=== PATIENT | female | born 1940 ===

== ENCOUNTER 2023-07-25 14:46 | Outpatient (REF) | payer MEDICARE, SELFPAY ==
--- NOTE | ~2023-07-25 | MM_ITS ---
EXAMINATION: MM SCREENING DIGITAL BREAST TOMOSYNTHESIS, BILATERAL CLINICAL INFORMATION: Screening. Asymptomatic. COMPARISON: Mammography: This study is compared with prior exams dating back to 2022. TECHNIQUE: Digital breast tomosynthesis is performed in both the craniocaudal and mediolateral oblique views along with computer-aided detection (CAD). Synthesized 2D images are generated from the tomosynthesis. FINDINGS: There are scattered areas of fibroglandular density (ACR BI-RADS breast composition Category b). There are no significant masses, abnormal calcifications, or other abnormalities. There are scattered, unchanged benign calcifications throughout the left breast along with several benign oil cysts. MM/MM tomosynthesis screening BI IMPRESSION: No mammographic evidence of malignancy. ASSESSMENT: BI-RADS BI-RADS 2 - Benign Findings RECOMMENDATION: Routine annual mammography screening. 1 year F/U This examination should not preclude the clinical evaluation of a suspicious palpable abnormality. This patient's information was entered into a reminder system with a target due date for their next mammogram.
== END 2023-07-25 14:47 | disposition home or self-care (01) ==
LOC: HO.MAMMO 14:46
PROVIDERS: PCP Internal Medicine; Visit Provider Internal Medicine
DX: Z12.31 Encounter for screening mammogram for malignant neoplasm of breast (principal)
CPT/HCPCS: 77063; 77067

== ENCOUNTER → 2023-07-25 15:00 | Outpatient (BNV) | payer MEDICARE, SELFPAY | PROVIDERS: PCP Internal Medicine; Visit Provider Radiology Diagnostic Radiology | DX: Z12.31 Encounter for screening mammogram for malignant neoplasm of breast (principal) | CPT/HCPCS: 77063; 77067 ==

== ENCOUNTER 2024-09-13 13:44 | Outpatient (REF) | payer MEDICARE, SELFPAY ==
--- OUTSIDE RECORDS SUMMARY | 2024-09-13 15:21 | XMS_ITS | Continuity of Care Document ---
Author Organization [facility] Address [address] [place] [id number] Phone Care Team Providers Care Pricing Clerk Name Role Phone Dennys LE, RVT, RPVI, Alberto Unavailable U navailable Allergies, Adverse Reactions, Alerts Substance Reaction Status Criticality Sulfa (Sulfonamide Antibiotics) Active No Information Medications Medication Instructions Dosage Effective Dates (start - stop) Status Comments levothyroxine 75 mcg capsule - A ctive Kapspargo Sprinkle 100 mg capsule,extended release - Active hydrochlorothiazide 25 mg tablet - Active escitalopram 10 mg tablet - Acti ve Zyrtec 10 mg capsule - Active metformin 500 mg tablet - Active irbesartan 300 mg tablet - Activ e Ozempic 0.25 mg or 0.5 mg (2 mg/1.5 mL) subcutaneous pen injector - Active Procedures Procedure Date Offic/outpt E&m Estab 5 Min Trial- Telem edicine CT & [place] Office/Outpt E&M Established 15 Mins- CT & [place] Duplex Scan-extrem Veins; Uni/ CT & [place] A Office/Outpt E&M Established 15 Mins Jan Duplex Scan-extrem Veins; Uni/ Phleb Veins - Extrem + Endovenous Laser, 1st Vein Endovenous Laser, 1st Vein Endovenous laser vein addon Duplex Scan-extrem Veins; Uni/ Aug-07-20 23 Phleb Veins - Extrem - To 20 Endovenous Laser, 1st Vein Endovenous laser vein addon Offic/outpt E&m Estab 5 Min Trial - Tele medicine Office/Outpt E&M Established 15 Mins July Duplex Scan-extrem Veins; Comp Office/Oupt E&M New Pt 30 Mins Advance Directives Directive Yes / No Effective Date File Name Other Directive No 12/25/2023 N/A WARNING:The information contained in this section is historical and is provided for information only and does not constitute a legal document or any assurance that the information is still accurate. Please verify the information with the cortes of the legal document before using it for clinical purposes. Encounters Encounter Description Practice Location Reason(s) For Visit Diagnoses Date Provider Providers Copied on Encounter Offic/outpt E&m Estab 5 Min Trial- Telemedicine [place] & [place] [facility], [address] [place] [address] Dr Duran 1000[facility] [place], [id number], [place] tel:[phone] [facility] Chronic venous hypertension (idiopathic) with other complication s of bilateral lower extremityLym phedema, not elsewhere classifiedRe stless legs syndromeType 2 diabetes mellitus without complication sEssential (primary) hypertension Pruritus, unspecified 4 Dennys LE, RVT, RPVI Alberto. [address] [address], [place], [place], [id number] , [place]. tel:[phone] Referring Provider: Estelita Levi MD, [address] [place] [address] [address] [place] [address], [address]. tel:[phone] Office/Outpt E&M Established 15 Mins- [place] & [place] [facility], [address] [place] [address] Dr Duran 1000Mikey hurd [place], [id number], [place] tel:[phone] [facility] Type 2 diabetes mellitus without complication sEssential (primary) hypertension Pruritus, unspecifiedV aricose veins of left lower extremity with other complication sLymphedema, not elsewhere classified 4 Dennys LE RVT, BEBETO Dominguez. [address] [place] [address], [place], [place], [id number] , [place]. tel:[phone] Referring Provider: Estelita Levi MD, [address] [place] [address] [address] [place] [address], [address]. tel:[phone] [facility], [address] [place] [address] [facility] 1000[facility], [id number], [place] tel:[phone] CVR - [facility] Chronic venous hypertension (idiopathic) with other complication s of left lower extremity 4 Dennys LE RVT, BEBETO Dominguez. [address] [place] [address], [place], [place], [id number] , [place]. tel:[phone] Referring Provider: Estelita Levi MD, [address] [place] [address] [place] [address], [address]. tel:[phone] Office/Outpt E&M Established 15 Mins [facility], [address] [place] [address] [facility] [address] [address], [id number], [place] tel:[phone] [facility] - [facility] Chronic venous hypertension (idiopathic) with other complication s of bilateral lower extremity 3 Jagjit LE FACS JOSUE White. [address] [place] [address], [place], [address], [place]. tel:[phone] Referring Provider: Estelita Levi MD, [address] [place] [address] [address] [place] [address], [address]. tel:[phone] [facility], [address] [place] [address] [facility] [address], [id number], [place] tel:[phone] [facility] [place] [facility] [place] Encntr for f/u exam aft trtmt for cond oth than malig neoplmVarico se veins of left lower extremities with pain 3 Jagjit LE FACS JOSUE White. [address] [place] [address], [place], [address], [place]. tel:[phone] Referring Provider: Estelita Levi MD, [address] [place] [address] [address] [place] [address], [address]. 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 [address] [place] [address], [place], [place], [id number] , [place]. tel:[phone] Referring Provider: Estelita Levi MD, [address] [place] [address] [address] [place] [address], [address]. 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 [address] [place] [address], [place], [address], [place]. tel:[phone] Referring Provider: Estelita Levi MD, [address] [place] [address] [address] [place] [address], [address]. 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 [address] [place] [address], [place], [address], [place]. tel:[phone] Referring Provider: Estelita Levi MD, [address] [place] [address] [address] [place] [address], [address]. tel:[phone] [facility], [address] [place] [address] [address] 1000, [place], [id number], tel:[phone] [facility] [place] Encntr for f/u exam aft trtmt for cond oth than malig neoplmVarico se veins of right lower extremities with pain 3 Jagjit LE FACS T BEBETO White. [address] [place] [address], [place], [address], [place]. tel:[phone] Referring Provider: Estelita Levi MD, [address] [place] [address] [address] [place] [address], [address]. tel:[phone] [facility], [address] [place] [address] [address] [address], [place], [id number], [place] tel:[phone] [facility] [place] Varicose veins of right low extrm w oth complication s 3 Charbel Webber . [address] [place] [address], [place], [place], [id number] , [place]. tel:[phone] Referring Provider: Estelita Levi MD, [address] [facility] Clifford [address] [place] [address], [address]. tel:[phone] [facility], [address] [place] [address] [place] [address], [place], [id number], [place] tel:[phone] [facility] [place] Varicose veins of right low extrm w oth complication s 3 Jagjit LE FACS T BEBETO White. [address] [place] [address], [place], [address], [place]. tel:[phone] Referring Provider: Estelita Levi MD, [address] [facility] Clifford [address] [place] [address], [address]. tel:[phone] Offic/outpt E&m Estab 5 Min Trial - Telemedicine [facility] [place] GARCIA, [address] [place] [address] [address], [id number], [place] tel:[phone] [facility] [place] Varicose veins of bi low extrem w oth complication s 3 Jagjit LE FACS Bill White. [address] [place] [address], [address] [address], [place], [address], . tel:[phone] Referring Provider: Estelita Levi MD, [address] [facility] Clifford [address] [place] [address], [address], [address]. tel:[phone] Office/Outpt E&M Established 15 Mins [facility], [address] [place] [address] [address], [id number], [place] tel:[phone] [facility] [place] Body mass index (BMI) 31.0-31.9, adultVenous insufficienc y (chronic) (peripheral) 3 Jagjit LE FACS Bill White. [address] [place] [address], [place], [address], [place]. tel:[phone] Referring Provider: Estelita Levi MD, [address] [facility] Clifford [address] [place] [address], [address]. tel:[phone] [facility], [address] [place] [address] [address], [id number], [place] tel:[phone] [facility] - [facility] Venous insufficienc y (chronic) (peripheral) Pain in right legPain in left leg 3 Jagjit LE FACS Bill White. [address] [place] [address], [address] [address], [place], [address], [place]. tel:[phone] Referring Provider: Estelita Levi MD, [address] [facility] Clifford [address] [place] [address], [address], [address]. tel:[phone] Office/Oupt E&M New Pt 30 Mins [facility], [address] [place] [address] Dr [address], [place], [id number], [place] tel:[phone] [facility] [place] Venous insufficienc y (chronic) (peripheral) Type 2 diabetes mellitus without complication sRestless legs syndromeEsse ntial (primary) hypertension Lymphedema, not elsewhere classifiedPr uritus, unspecifiedH ereditary lymphedema 3 Jagjit LE FACS RVT BEBETO White. [address] [facility] [address], [place], [address], [place]. tel:[phone] Referring Provider: Estelita Levi MD, [address] [place] [address] [place] [address], [place], [address]. tel:[phone] Family History Family Member Type Diagnosis Age At Onset No Information Payers Payer name Insurance type Covered green party ID Authoriza talia(s) [facility] AARP Medic are Complete CI [id number] Social History Type Description Quantity Date Captured Comments Alcohol Use Details Unknown Caffeine Use Details Unknown Tobacco Use Status Current non-smoker Smoking Status Never Smoker Non-Smoking Tobacco Use Details : No Details Available : No Details Available Sex Female Vital Signs Date / Time: Height Weight BMI Pulse Rate Blood Pressure Temperature Respiratory Rate Body Surface Area Head Circumference Head Circ. Percentile Wt./Fazal. Percentile BMI percentile Pulse Ox Inhaled Ox 85.280 kg (188.00 lbs) 31.3 6 kg/m eter (2) Chief Complaint And Reason For Visit No Information Reason For Referral Reason For Referral No Information Plan Of Treatment Date Type Action Status Goal Diet education completed Goal Tobacco cessation counseling completed Goal Tobacco cessation counseling completed Goal Dietary management education , guidance, and counseling completed Goal Diet education completed Referral Ordered: Weight management: Referral to physician timeframe: 3 Months (related to Body mass index (BMI) 31.0-31.9, adult) ordered Referral Ordered: Weight management: Referral to physician timeframe: 3 Months (related to Body mass index (BMI) 31.0-31.9, adult) ordered History Of Present Illness Encounter Date Complaint History Of Prese nt Illness No Information Functional Status Date Functional Assessmen t No Information Instructions Date Instruction Additional Infor mation Compression stocking usage as conservative measure Related to Chronic venous hypertension (idiopathic) with other complications of bilateral lower extremity Patient education booklet given Related to Chronic venous hypertension (idiopathic) with other complications of bilateral lower extremity Diet education Related to Body mass index (BMI) 31.0-31.9, adult Giving Encouragement to exercise Related to Body mass index (BMI) 31.0-31.9, adult Lifestyle education Related to B [place] mass index (BMI) 31.0-31.9, adult Patient education booklet given Related to Varicose veins of left lower extremity with other complications Compression stocking usage as conservative measure Related to Varicose veins of left lower extremity with other complications Dietary management e ducation, guidance, and counseling Related to Body mass index [BMI] 31.0-31.9, adult Compression stocking usage as conservative measure Related to Venous insufficiency (chronic) (peripheral) Patient education booklet given Related to Venous insufficiency (chronic) (peripheral) Lifestyle education Related to B [place] mass index (BMI) 31.0-31.9, adult Giving Encouragement to exercise Related to Body mass index (BMI) 31.0-31.9, adult Diet education Related to Body mass index (BMI) 31.0-31.9, adult Assessments Type Assessment Date No Information Patient Care Teams Name Effective Dates (start - stop) Status Members No Information
== END 2024-09-13 13:45 | disposition home or self-care (01) ==
LOC: HO.MAMMO 13:44
PROVIDERS: PCP Internal Medicine; Visit Provider Internal Medicine
DX: Z12.31 Encounter for screening mammogram for malignant neoplasm of breast (principal)
CPT/HCPCS: 77063; 77067

== ENCOUNTER → 2024-09-13 14:00 | Outpatient (BNV) | payer MEDICARE, SELFPAY | PROVIDERS: PCP Internal Medicine; Visit Provider Internal Medicine | DX: Z12.31 Encounter for screening mammogram for malignant neoplasm of breast (principal) | CPT/HCPCS: 77063; 77067 ==